=== PATIENT | female | born 1955 | race Caucasian/White ===

== ENCOUNTER → 2017-02-23 | Outpatient (CLI) | payer BC ==
[~2017-02-23] MED LIST: AMBIEN 10MG10 MG PO; CELEBREX 200MG200 MG PO; CYMBALTA 60MG60 MG PO; ESTRACE0.5 MG PO; HCTZ 25MG TAB25 MG PO; PLAQUENIL 200M200 MG PO; REQUIP 0.5MG0.5 MG PO; SINGULAIR 110 MG/TAB PO; ZYRTEC 10MG10 MG PO
== END ==
LOC: COL.RAD 02-21 13:30
DX: M18.11 Unilateral primary osteoarthritis of first carpometacarpal joint, right hand (principal); M24.231 Disorder of ligament, right wrist; M19.031 Primary osteoarthritis, right wrist; M25.831 Other specified joint disorders, right wrist; M24.131 Other articular cartilage disorders, right wrist
CPT/HCPCS: A9585; Q9967

== ENCOUNTER → 2018-12-04 | Outpatient (CLI) | payer BC | LOC: MC.RAD 10:48 | DX: Z12.31 Encounter for screening mammogram for malignant neoplasm of breast (principal); N63.10 Unspecified lump in the right breast, unspecified quadrant; R92.0 Mammographic microcalcification found on diagnostic imaging of breast ==

== ENCOUNTER → 2021-05-26 | Outpatient (CLI) | payer MEDICARE | LOC: MC.RAD 11:39 | DX: Z12.31 Encounter for screening mammogram for malignant neoplasm of breast (principal) ==